=== PATIENT | male | born 1965 | race Caucasian/White ===

== ENCOUNTER 2016-10-11 09:56 | Emergency (ER) | payer OTHER ==
[~2016-10-11 09:56] MED LIST: ACID CONTROL20 MG PO; BACTRIM DS TABL1 TA2 PO; BENADRYL25 M3 PO; CELEXA PO; CLARITIN10 M2 PO; CORTISPORIN-TC10 ML OT; LEVAQUIN750 MG PO; LISINOPRIL-HCTZ1 T14 PO; LISINOPRIL20 MG PO; LORTAB 5/500 TA1 TA1 PO; LOTRISONE CREAM45 GM TOP; MEDROL DOSEPAK4 MG PO; NEURONTIN100 MG PO; OXAPROZIN600 MG PO; PREDNISONE PO; TOPROL XL100 MG PO; ULTRAM PO; VIBRAMYCIN100 M1 PO; VOLTAREN75 MG PO; ZANAFLEX PO; ZANAFLEX4 M1 PO; ZYRTEC10 M2 PO
[2016-10-11] MEDS ORDERED: LOSARTAN-HCTZ1 EAC2 PO (10:06)
[2016-10-11] MEDS ORDERED: NORVASC10 MG PO (10:06)
== END 2016-10-11 11:05 | disposition home or self-care (01) ==
LOC: SED 09:56
DX: S91.152A Open bite of left great toe without damage to nail, initial encounter (principal); I10 Essential (primary) hypertension; F17.200 Nicotine dependence, unspecified, uncomplicated; W53.11XA Bitten by rat, initial encounter
CPT/HCPCS: 90471; 90715; 99283